=== PATIENT | male | born 1975 | race Caucasian/White ===

== ENCOUNTER 2021-02-17 18:46 | Emergency (ER) | payer OTHER ==
[~2021-02-17] VITALS: Ht 167.6 cm; Wt 78.0 kg
[~2021-02-17 18:46] MED LIST: AMOX1TAB12 PO; KETO10TA2 PO
[2021-02-17] MEDS ORDERED: UROXATRAL10 MG PO (18:56)
[2021-02-17] MEDS ORDERED: CRESTOR10 MG PO (18:56)
== END 2021-02-17 22:36 | disposition home or self-care (01) ==
LOC: ER 18:46
DX: R53.81 Other malaise (principal); R51.9 Headache, unspecified; Z03.818 Encounter for observation for suspected exposure to other biological agents ruled out